=== PATIENT | male | born 1965 | race Caucasian/White ===

== ENCOUNTER 2025-03-23 16:38 | Inpatient (IN) | payer OTHER ==
[2025-03-23 17:05] VITALS: BMI 27.1
[2025-03-23] MEDS ORDERED: NALOXONE (NARCAN) HCL 4 MG/0.1 ML SPRAY NS PRN (18:08)
[2025-03-23] MEDS ORDERED: POLYETHYLENE GLYCOL (HEALTHYLAX) 3350 17 GM PACKET PO PRN (18:08)
[2025-03-23] MEDS ORDERED: DICYCLOMINE HCL 10 MG CAPSULE PO PRN (18:08)
[2025-03-23] MEDS ORDERED: IBUPROFEN 600 MG TABLET (FP) PO PRN (18:08)
[2025-03-23] MEDS ORDERED: ONDANSETRON *ODT* 4 MG TABLET SL PRN (18:08)
[2025-03-23] MEDS ORDERED: BENZONATATE 200 MG CAPSULE PO PRN (18:08)
[2025-03-23] MEDS ORDERED: IBUPROFEN 400 MG TABLET (FP) PO PRN (18:08)
[2025-03-23] MEDS ORDERED: guaiFENesin 600 MG TABLET.ER (FP) PO PRN (18:08)
[2025-03-23] MEDS ORDERED: MAG HYDROX/AL HYDROX/SIMETH 30 ML UNIT-DOSE CUP PO PRN (18:08)
[2025-03-23] MEDS ORDERED: LOPERAMIDE HCL 2 MG CAPSULE PO PRN (18:08)
[2025-03-23] MEDS ORDERED: MAGNESIUM HYDROX 2400MG/30ML ORAL SUSPENSION 30 ML CUP PO PRN (18:08)
[2025-03-23] MEDS ORDERED: BENZOCAINE/MENTHOL (CHLORASEPTIC ) LOZENGE MM PRN (18:08)
[2025-03-23] MEDS ORDERED: BISMUTH SUBSALICYLATE 524 MG/30 ML PO PRN (18:08)
[2025-03-23] MEDS: METHOCARBAMOL 500 MG TABLET PO PRN (20:27)
[2025-03-23] MEDS: PHENYTOIN NA EXTENDED 100 MG CAPSULE (FP) PO ONE (20:28)
[2025-03-23] MEDS: ACETAMINOPHEN 325 MG TABLET (FP) PO PRN (20:33)
[2025-03-23] MEDS ORDERED: PATIENT'S OWN MEDICATION (NON-FORMULARY) (Simvastatin [Zocor] 20 MG Tablet) PO SCH (22:00)
[2025-03-23] MEDS: MELATONIN 5 MG TABLETS PO SCH (23:14)
[2025-03-23] MEDS: THIAMINE 100 MG TABLET PO SCH (23:14)
[2025-03-23] MEDS: ATORVASTATIN CA 10 MG TABLET (FP) PO SCH (23:15)
[2025-03-24] MEDS: PHENYTOIN NA EXTENDED 100 MG CAPSULE (FP) PO SCH (06:25)
[2025-03-24] MEDS ORDERED: PANTOPRAZOLE 40 MG TABLET PO SCH (10:00)
[2025-03-24 10:17] LABS: MCHC 32.9 g/dl (32.3-36.5); MEAN CELL VOLUME 99.1 fl (79.0-92.2); MEAN PLT VOLUME 8.9 fl (9.4-12.4); RDW 12.8 % (12.2-16.1)
[2025-03-24] MEDS: amLODIPine BESYLATE 10 MG TABLET (FP) PO SCH (10:28)
[2025-03-24] MEDS: FOLIC ACID 1 MG TABLET (FP) PO SCH (10:28)
[2025-03-24] MEDS: PRENATAL VITAMINS W/ FOLIC ACID TABLET (FP) PO SCH (10:28)
[2025-03-24 10:33] LABS: CO2 31 mmol/L (21-32); GLUCOSE,RANDOM 136 mg/dL (74-106)
[2025-03-24 10:36] LABS: CREATININE 0.7 mg/dL (0.55-1.3); SGOT/AST 30 U/L (15-37); SGPT/ALT 39 U/L (13-61)
[2025-03-24 10:38] LABS: TOT PROT 7.3 g/dl (6.4-8.2)
[2025-03-24 10:39] LABS: ALK PHOS 113 U/L (45-117)
[2025-03-25] MEDS: hydrOXYzine PAMOATE 25 MG CAPSULE (FP) PO PRN (05:42)
[2025-03-25] MEDS: NICOTINE 7 MG/24 HOURS TOPICAL PATCH TD SCH (15:55)
[2025-03-25] MEDS: NALTREXONE HCL 50 MG TABLET PO ONE (15:55)
[2025-03-26 08:53] VITALS: BP 117/89; PULSE 100; RESP 17; TEMP 98.1
[2025-03-26] MEDS: NALTREXONE HCL 50 MG TABLET PO SCH (09:53)
== END 2025-03-26 11:00 | disposition home or self-care (01) | DRG 897 ==
LOC: YASAS 16:38 → Y3N 18:37
PROVIDERS: ADMIT Neuromusculoskeletal Medicine & OMM; ATTEND Allergy & Immunology
PROC: HZ2ZZZZ Detoxification Services for Substance Abuse Treatment (ICD-10-PCS; principal; 2025-03-23)
DX: F10.20 Alcohol dependence, uncomplicated (principal); F12.20 Cannabis dependence, uncomplicated; G40.909 Epilepsy, unspecified, not intractable, without status epilepticus; I10 Essential (primary) hypertension; R26.81 Unsteadiness on feet
CPT/HCPCS: 36415; 80053; 80307; 85027; 86780; 93005; 93010